=== PATIENT | female | born 1990 | race Hispanic/Latino ===

== ENCOUNTER 2023-12-14 16:22 | Emergency (ER) | payer MEDICAID ==
[~2023-12-14] VITALS: Ht 160 cm; Wt 77.1 kg
[2023-12-14 17:24] VITALS: BP 125/84; PULSE 74; RESP 20; O2SAT 99
[2023-12-14] MEDS: KETOROLAC 15MG/ML VIAL (15MG/ML) IM STA (17:37)
[2023-12-14] MEDS ORDERED: NAPR-1192 PO (18:15)
[2023-12-14] MEDS ORDERED: DICL100G32 TP (18:15)
== END 2023-12-14 18:49 | disposition home or self-care (01) ==
LOC: EDH 16:22
DX: M25.562 Pain in left knee (principal)
CPT/HCPCS: 99283; 73564; 96372; J1885

== ENCOUNTER 2024-04-07 12:09 | Emergency (ER) | payer SELFPAY ==
[~2024-04-07] VITALS: Ht 152.4 cm; Wt 90.7 kg
[~2024-04-07 12:09] MED LIST: DICL100G32 TP; NAPR-1192 PO
[2024-04-07 12:34] VITALS: BP 116/65; PULSE 81; RESP 18; TEMP 99.2; O2SAT 98
[2024-04-07 13:46] LABS: APPEARANCE,URINE CLEAR (CLEAR); BILIRUBIN,URINE NEGATIVE (NEGATIVE); GLUCOSE, URINE (UA) NEGATIVE (NEGATIVE); KETONES,URINE NEGATIVE (NEGATIVE); LEUKOCYTE ESTERASE ,URINE 75 Leu/uL (NEGATIVE); NITRATE,URINE NEGATIVE (NEGATIVE); OCCULT BLOOD,URINE NEGATIVE (NEGATIVE); PH,URINE 6.5 (5.0-8.0); PROTEIN,URINE NEGATIVE (NEGATIVE); UROBILINOGEN,URINE 0.2 mg/dL (0.2-1.0)
[2024-04-07 13:49] LABS: ADD UA MICROSCOPIC YES; COLOR,URINE LIGHT-YELLOW (YELLOW)
[2024-04-07 13:50] LABS: BACTERIA,URINE RARE /HPF (None Seen); RBC,URINE 0-1 /HPF (0-1); SQUAMOUS EPITHELIAL CELL,UR RARE /HPF (0-2)
[2024-04-07] MEDS: ondanSETRON ODT 4MG TAB SL ONE (13:51)
[2024-04-07 14:26] LABS: COVID19 (SARS ANTIGEN RAPID) PRESUMPTIVE NEGATIVE (NEGATIVE); INFLUENZA TYPE A Negative For Type A (NEGATIVE); INFLUENZA TYPE B Negative For Type B (NEGATIVE)
[2024-04-07] MEDS: cefTRIAXone 1G VIAL IM ONE (15:40)
[2024-04-07] MEDS ORDERED: ONDA-243 PO (15:41)
[2024-04-07] MEDS ORDERED: CEPH500B PO (15:41)
== END 2024-04-07 15:53 | disposition home or self-care (01) ==
LOC: EDH 12:09
DX: N39.0 Urinary tract infection, site not specified (principal); B34.9 Viral infection, unspecified; Z20.822 Contact with and (suspected) exposure to COVID-19; Z79.899 Other long term (current) drug therapy; Z98.890 Other specified postprocedural states
CPT/HCPCS: 99283; 87426; 87086 ×2; 87186; 87804 ×2; 81001; 81025; 96372; J0696